=== PATIENT | male | born 1980 | race African-American/Black ===

== ENCOUNTER 2017-07-15 10:08 | Emergency (ER) | payer MEDICARE, MEDICAID ==
[~2017-07-15] VITALS: Ht 182.9 cm; Wt 77.1 kg
[~2017-07-15 10:08] MED LIST: IBUPROFEN600 MG ORAL; NKM
[2017-07-15] MEDS ORDERED: Tetanus/Diptheria/Pertussis Vaccine 0.5ml Syr IM ONE (10:45)
[2017-07-15] MEDS ORDERED: Bacitracin Oint UD TOPIC ONE (10:45)
--- NOTE | 2017-07-15 10:52 | Emergency Room Report ---
History of Present Illness General Chief Complaint: Animal Bite Source: Patient Present Illness HPI The patient was bitten by his friend's dog. He has bites on the left and right leg. No sig bleeding.. No numbness. Pain reported at 11/29. The patient is a dialysis patient and he has hypertension. His dialysis 3 times a week. Soon to be on list for kidney. He's not sure when his last tetanus shot was. No CP, palps, fever, dyspnea, joint pain. Allergies: Coded Allergies: No Known Allergies (Unverified , 11/29/15) Patient History Past Medical History: see triage record Social History: Denies: smoking Reviewed Nursing Documentation: PMH: Agreed, PSxH: Agreed Nursing Documentation-PMH Hx Hypertension: Yes Hx Dialysis: Yes - M, W, F Review of Systems All Other Systems: negative except mentioned in HPI Physical Exam Vital Signs Date Time Temp Pulse Resp B/P (MAP) Pulse Ox O2 Delivery O2 Flow Rate FiO2 07/15/17 10:12 98.1 101 20 153/101 99 Room Air Sp02 EP Interpretation: reviewed, normal General Appearance: well appearing, no apparent distress, GCS 15 Head: normocephalic, atraumatic Eyes: bilateral eye normal inspection, bilateral eye PERRL ENT: hearing grossly normal, normal voice, moist mucus membranes Neck: full range of motion, supple Respiratory: no respiratory distress, speaking full sentences Cardiovascular #1: regular rate, rhythm, other - cap fill normal. shunt not examined Gastrointestinal: normal inspection Musculoskeletal: gait/station normal, normal range of motion, no calf tenderness Neurologic: alert, motor strength/tone normal, sensory intact, normal gait, grossly normal Psychiatric: mood/affect normal Skin: other - multiple abrasions, few PWs, no lacerations LE bilat Medical Decision Making Diagnostic Impression: Primary Impression: Dog bite Qualified Codes: W54.0XXA - Bitten by dog, initial encounter Additional Impression: Dialysis patient ER Course Patient presents with multiple dog bites LE bilateral. No suturable lesions. Needs tetanus and antibiotics. Need to adjust dose due to renal failure. Wounds cleaned and dressed. Augmentin begun. Declines pain medicine. Patient stable for outpatient observation and treatment. Last Vital Signs Date Time Temp Pulse Resp B/P (MAP) Pulse Ox O2 Delivery O2 Flow Rate FiO2 07/15/17 11:29 98.1 69 20 150/92 99 Room Air Status: improved Disposition: HOME, SELF-CARE Condition: Improved Scripts Bacitracin (Bacitracin) 28.4 Gm Oint...g. 1 APPLIC TOPIC BID, #10 GM Prov: Chuy Fermin M.D. 07/15/17 Acetaminophen (Tylenol) 325 Mg Tablet 650 MG ORAL Q6H Y for Prn Pain/Headache/Temp > 101, #20 TAB 0 Refills Prov: Chuy Fermin M.D. 07/15/17 Amoxicillin/Potassium Clav 500-125 Tablet* (AUGMENTIN 500-125 TABLET*) 1 Each Tablet 1 TAB ORAL DAILY for 7 Days, TAB take the dose after dialysis Prov: Chuy Fermin M.D. 07/15/17 Chuy Fermin M.D. Jul 15, 2017 10:52
[2017-07-15] MEDS ORDERED: TYLENOL325 MG ORAL (10:55)
[2017-07-15] MEDS ORDERED: AUGMENTIN 500-1 EACH ORAL (10:55)
[2017-07-15] MEDS ORDERED: BACITRACIN15 GM TOPIC (10:55)
[2017-07-15 11:21] VITALS: BP 150/92
== END 2017-07-15 11:32 | disposition home or self-care (01) ==
LOC: EMR 11:10
DX: S81.852A Open bite, left lower leg, initial encounter (principal); S81.851A Open bite, right lower leg, initial encounter; W54.0XXA Bitten by dog, initial encounter; Y93.9 Activity, unspecified; Y92.9 Unspecified place or not applicable; Z99.2 Dependence on renal dialysis; I10 Essential (primary) hypertension; Z23 Encounter for immunization
CPT/HCPCS: 90471; 90715; 99284

== ENCOUNTER 2017-07-25 13:19 | Inpatient (IN) | payer OTHER, MEDICAID, MEDICARE ==
[~2017-07-25] VITALS: Ht 182.9 cm; Wt 84.5 kg
[2017-07-25] MEDS: Zosyn 2.25 gm in D5W 55ml IV SCH (00:30)
[~2017-07-25 13:19] MED LIST changes: +AUGMENTIN 500-1 EACH ORAL; +BACITRACIN15 GM TOPIC; +TYLENOL325 MG ORAL
[2017-07-25 13:48] VITALS: BP 110/75
[2017-07-25] MEDS ORDERED: Piperacillin/Tazobactam 3.375 GM in NS 110 ML IVPB ONE (14:15)
--- NOTE | 2017-07-25 14:20 | Emergency Room Report ---
History of Present Illness General Chief Complaint: Skin Rash/Abscess Source: Patient Present Illness HPI The patient is a 37-year-old male with a history of renal failure on dialysis Friday presenting for possible skin infection. He was seen in this emergency department on 07/15/17 after a dog bite and was placed on Augmentin and Bactrim which he states he has completed. He states that he was at his dialysis center today and the wound was checked by staff and she was told it was infected. He states he also had a fever today and he has been feeling more short of breath than usual after the treatment. Pain is 8/10 dull ache and does not radiate from the left hip where the bite is. He does admit to subjective fever and chills. He denies any other symptoms including nausea, vomiting, chest pain, back pain, numbness or tingling, dizziness Allergies: Coded Allergies: No Known Allergies (Unverified , 11/29/15) Patient History Past Medical History: see triage record, HTN, renal disease - renal failure Pertinent Family History: none Reviewed Nursing Documentation: PMH: Agreed, PSxH: Agreed Nursing Documentation-PMH Past Medical History: No History, Except For Hx Hypertension: Yes Hx Dialysis: Yes - shunt on rt chest Review of Systems All Other Systems: negative except mentioned in HPI Physical Exam Vital Signs Date Time Temp Pulse Resp B/P (MAP) Pulse Ox O2 Delivery O2 Flow Rate FiO2 07/25/17 13:38 100.2 99 18 105/74 96 Room Air Sp02 EP Interpretation: reviewed, normal General Appearance: no apparent distress, alert, GCS 15, non-toxic Head: normocephalic, atraumatic Eyes: bilateral eye normal inspection, bilateral eye PERRL ENT: hearing grossly normal, normal pharynx, no angioedema, normal voice Neck: full range of motion, supple/symm/no masses Respiratory: chest non-tender, lungs clear, normal breath sounds, speaking full sentences Cardiovascular #1: regular rate, rhythm, no edema Musculoskeletal: normal range of motion, tender - TTP over the L lateral hip Neurologic: alert, oriented x3, responsive, motor strength/tone normal, sensory intact, speech normal Psychiatric: judgement/insight normal, memory normal, mood/affect normal, no suicidal/homicidal ideation Skin: other - There are multiple bite wounds to the left lateral hip with surrounding erythema and induration Lymphatic: no adenopathy Medical Decision Making PA Attestation Dr. Drummond is my supervising physician. Patient management was discussed with my supervising physician Diagnostic Impression: Primary Impression: Abscess or cellulitis of hip ER Course The patient is a 37-year-old male presenting for possible skin infection Differential diagnoses considered but not limited to: abscess, cellulitis, sepsis, among others PE: T 100.2F NAD Left hip reveals multiple bite wounds with surrounding erythema and tenderness. No discharge. No bleeding. Area is hot to touch Labs: leukocytosis. CMP shows ESRD Dr. Drummond has spoken with Dr. Martinez regarding admission. He is given a dose of zosyn, vancomycin, and tylenol for fever. He will be admitted in stable but serious condition. Laboratory Tests Test 07/25/17 14:53 White Blood Count 20.1 K/UL (4.8-10.8) H Red Blood Count 4.10 M/UL (4.70-6.10) L Hemoglobin 11.7 G/DL (14.2-18.0) L Hematocrit 35.3 % (42.0-52.0) L Mean Corpuscular Volume 86 FL (80-99) Mean Corpuscular Hemoglobin 28.5 PG (27.0-31.0) Mean Corpuscular Hemoglobin Concent 33.1 G/DL (32.0-36.0) Red Cell Distribution Width 19.0 % (11.6-14.8) H Platelet Count 180 K/UL (150-450) Mean Platelet Volume 6.5 FL (6.5-10.1) Neutrophils (%) (Auto) % (45.0-75.0) Lymphocytes (%) (Auto) % (20.0-45.0) Monocytes (%) (Auto) % (1.0-10.0) Eosinophils (%) (Auto) % (0.0-3.0) Basophils (%) (Auto) % (0.0-2.0) Differential Total Cells Counted 100 Neutrophils % (Manual) 87 % (45-75) H Lymphocytes % (Manual) 5 % (20-45) L Monocytes % (Manual) 5 % (1-10) Eosinophils % (Manual) 1 % (0-3) Basophils % (Manual) 0 % (0-2) Band Neutrophils 2 % (0-8) Platelet Estimate Adequate Platelet Morphology Normal Polychromasia 1+ Hypochromasia 1+ Anisocytosis 2+ Sodium Level 136 mEQ/L (135-145) Potassium Level 4.8 mEQ/L (3.4-4.9) Chloride Level 94 mEQ/L (98-107) L Carbon Dioxide Level 26 mEQ/L (20-30) Anion Gap 16 (5-15) H Blood Urea Nitrogen 45 mg/dL (7-23) H Creatinine 11.6 mg/dL (0.7-1.2) H Estimate Glomerular Filtration Rate 6.1 mL/min (>60) Glucose Level 92 mg/dL (74-106) Lactic Acid Level 1.40 mmol/L (0.66-2.22) Calcium Level 10.0 mg/dL (8.6-10.2) Total Bilirubin 0.4 mg/dL (0.0-1.2) Aspartate Amino Transferase (AST) 15 U/L (5-40) Alanine Aminotransferase (ALT) 12 U/L (3-41) Alkaline Phosphatase 73 U/L (40-129) Total Creatine Kinase 98 U/L (38-174) Creatine Kinase MB < 1.5 ng/mL (< 6.7) Creatine Kinase MB Relative Index 1.5 Troponin I 0.017 ng/mL (0.000-0.056) Total Protein 8.5 g/dL (6.6-8.7) Albumin 4.6 g/dL (3.5-5.2) Globulin 3.9 g/dL Albumin/Globulin Ratio 1.1 (1.0-2.7) Lab Results Impression CBC: leukocytosis with L shift. CMP: consistent with ESRD Last Vital Signs Date Time Temp Pulse Resp B/P (MAP) Pulse Ox O2 Delivery O2 Flow Rate FiO2 07/25/17 13:38 100.2 99 18 105/74 96 Room Air Status: improved Disposition: ADMITTED INPATIENT Condition: Stable Referrals: NON PHYSICIAN (PCP) MARISA HOWELL Jul 25, 2017 14:20
--- NOTE | 2017-07-25 14:32 | Diagnostic Imaging Report ---
Indication: Dyspnea Comparison: None A single view chest radiograph was obtained. Findings: Cardio sternal silhouette is within normal limits. Lungs are clear with normal vascularity. Costophrenic angles are sharp and clear. Bones are unremarkable. There is a right jugular permacath in good position. The tip is in the right atrium. Impression: Permacath in good position.
[2017-07-25] MEDS ORDERED: Zosyn 3.375gm inj ONE (14:38)
[2017-07-25] MEDS ORDERED: CLONIDINE0.1 MG GT (15:21)
[2017-07-25] MEDS ORDERED: LOSARTAN POTASS25 M1 PO (15:21)
[2017-07-25 15:27] LABS: MEAN CORPUSCULAR HEMOGLOBIN 28.5 PG (27.0-31.0); MEAN CORPUSCULAR HGB CONC 33.1 G/DL (32.0-36.0); MEAN CORPUSCULAR VOLUME 86 FL (80-99); MEAN PLATELET VOLUME 6.5 FL (6.5-10.1); PLATELET COUNT 180 K/UL (150-450); WHITE BLOOD COUNT 20.1 K/UL (4.8-10.8)
[2017-07-25 15:41] LABS: ALANINE AMINOTRANSFERASE 12 U/L (3-41); ALBUMIN/GLOBULIN RATIO 1.1 (1.0-2.7); ANION GAP 16 (5-15); ASPARTATE AMINO TRANSFERASE 15 U/L (5-40); CARBON DIOXIDE 26 mEQ/L (20-30); CHLORIDE 94 mEQ/L (98-107); CREATININE 11.6 mg/dL (0.7-1.2); GLOMERULAR FILTRATION RATE 6.1 mL/min (>60); HEMOLYSIS 5; POTASSIUM 4.8 mEQ/L (3.4-4.9); SODIUM 136 mEQ/L (135-145); TOTAL PROTEIN 8.5 g/dL (6.6-8.7)
[2017-07-25 15:52] LABS: CKMB < 1.5 ng/mL (< 6.7)
[2017-07-25 15:55] LABS: TROPONIN I 0.017 ng/mL (0.000-0.056)
[2017-07-25] MEDS: Vancomycin 1.5gm/D5W 250ml 250 ML IVPB ONE ×2 (16:30→19:00)
[2017-07-25 17:13] LABS: ANISOCYTOSIS 2+; BAND NEUTROPHILS % (MANUAL) 2 % (0-8); BASOPHILS % (MANUAL) 0 % (0-2); EOSINOPHILS % (MANUAL) 1 % (0-3); LYMPHOCYTES % (MANUAL) 5 % (20-45); NEUTROPHILS % (MANUAL) 87 % (45-75); PLATELET ESTIMATE ADEQUATE; TOTAL CELLS COUNTED 100
[2017-07-25 17:14] LABS: HYPOCHROMASIA 1+; PLATELET MORPHOLOGY NORMAL; POLYCHROMASIA 1+
[2017-07-25 18:39] VITALS: BP 130/71
[2017-07-25 20:00] VITALS: BP 135/72
--- NOTE | 2017-07-25 22:13 | Nephrology Progress Note ---
Assessment/Plan Problem List: (1) Dog bite (2) Dialysis patient (3) Abscess or cellulitis of hip Plan H&P dictated # [id number] Subjective Constitutional: Denies: no symptoms, chills, diaphoresis, fever, malaise, weakness, other HEENT: Denies: no symptoms, eye pain, blurred vision, tearing, double vision, ear pain, ear discharge, nose pain, nose congestion, throat pain, throat swelling, mouth pain, mouth swelling, other Genitourinary: Denies: no symptoms, burning, discharge, frequency, flank pain, hematuria, incontinence, pain, urgency, other Neurologic/Psychiatric: Denies: no symptoms, anxiety, depressed, emotional problems, headache, numbness, paresthesia, pre-existing deficit, seizure, tingling, tremors, weakness, other Subjective in bed, in no apparent distress Objective Objective Last 24 Hour Vital Signs Date Time Temp Pulse Resp B/P (MAP) Pulse Ox O2 Delivery O2 Flow Rate FiO2 07/25/17 20:00 99.5 83 18 135/72 99 Room Air 07/25/17 18:39 97.9 77 16 130/71 97 Room Air 07/25/17 13:48 100.2 78 20 110/75 100 Room Air 07/25/17 13:38 100.2 99 18 105/74 96 Room Air Laboratory Tests 07/25/17 14:53: White Blood Count 20.1H, Red Blood Count 4.10L, Hemoglobin 11.7L, Hematocrit 35.3L, Mean Corpuscular Volume 86, Mean Corpuscular Hemoglobin 28.5, Mean Corpuscular Hemoglobin Concent 33.1, Red Cell Distribution Width 19.0H, Platelet Count 180, Mean Platelet Volume 6.5, Neutrophils (%) (Auto) , Lymphocytes (%) (Auto) , Monocytes (%) (Auto) , Eosinophils (%) (Auto) , Basophils (%) (Auto) , Differential Total Cells Counted 100, Neutrophils % ( Manual) 87H, Lymphocytes % (Manual) 5L, Monocytes % (Manual) 5, Eosinophils % ( Manual) 1, Basophils % (Manual) 0, Band Neutrophils 2, Platelet Estimate Adequate, Platelet Morphology Normal, Polychromasia 1+, Hypochromasia 1+, Anisocytosis 2+, Sodium Level 136, Potassium Level 4.8, Chloride Level 94L, Carbon Dioxide Level 26, Anion Gap 16H, Blood Urea Nitrogen 45H, Creatinine 11.6H, Estimat Glomerular Filtration Rate 6.1, Glucose Level 92, Lactic Acid Level 1.40, Calcium Level 10.0, Total Bilirubin 0.4, Aspartate Amino Transf (AST /SGOT) 15, Alanine Aminotransferase (ALT/SGPT) 12, Alkaline Phosphatase 73, Total Creatine Kinase 98, Creatine Kinase MB < 1.5, Creatine Kinase MB Relative Index 1.5, Troponin I 0.017, Total Protein 8.5, Albumin 4.6, Globulin 3.9, Albumin/Globulin Ratio 1.1 Height (Feet): 6 Height (Inches): 0.00 Weight (Pounds): 170 General Appearance: no apparent distress, alert EENT: PERRL/EOMI, normal ENT inspection Neck: non-tender, normal alignment, supple, normal inspection Cardiovascular: normal rate, regular rhythm Respiratory/Chest: lungs clear, normal breath sounds Abdomen: soft, no organomegaly, no mass Extremities: non-tender, normal inspection, no calf tenderness Neurologic: alert, oriented x 3, responsive, normal mood/affect Diandra Crenshaw N.P. Jul 25, 2017 22:13
[2017-07-25] MEDS ORDERED: Norco 5mg/325mg tab ORAL PRN (22:15)
--- NOTE | 2017-07-25 22:30 | Infectious Diseases Prog Note ---
Assessment/Plan Problems: (1) Dog bite Assessment & Plan: will start zosyn and vancomycin empirically for soft tissue infection, and send blood culture to rule out bacteremia, continue local wound care . he recieved tetnus vaccine last visit here in the ER. no need for rabies vaccine since the dog is domestic and vaccinated. (2) Dialysis patient Assessment & Plan: continue HD as per renal. (3) Thigh abscess Assessment & Plan: with auto drain , continue wide spectrum antibiotics, pending wound culture result, continue local wound care Subjective Allergies: Coded Allergies: No Known Allergies (Unverified , 11/29/15) Objective Vital Signs Last 24 Hour Vital Signs Date Time Temp Pulse Resp B/P (MAP) Pulse Ox O2 Delivery O2 Flow Rate FiO2 07/25/17 20:00 99.5 83 18 135/72 99 Room Air 07/25/17 18:39 97.9 77 16 130/71 97 Room Air 07/25/17 13:48 100.2 78 20 110/75 100 Room Air 07/25/17 13:38 100.2 99 18 105/74 96 Room Air Height (Feet): 6 Height (Inches): 0.00 Weight (Pounds): 170 Laboratory Tests Test 07/25/17 14:53 White Blood Count 20.1 K/UL (4.8-10.8) H Red Blood Count 4.10 M/UL (4.70-6.10) L Hemoglobin 11.7 G/DL (14.2-18.0) L Hematocrit 35.3 % (42.0-52.0) L Mean Corpuscular Volume 86 FL (80-99) Mean Corpuscular Hemoglobin 28.5 PG (27.0-31.0) Mean Corpuscular Hemoglobin Concent 33.1 G/DL (32.0-36.0) Red Cell Distribution Width 19.0 % (11.6-14.8) H Platelet Count 180 K/UL (150-450) Mean Platelet Volume 6.5 FL (6.5-10.1) Neutrophils (%) (Auto) % (45.0-75.0) Lymphocytes (%) (Auto) % (20.0-45.0) Monocytes (%) (Auto) % (1.0-10.0) Eosinophils (%) (Auto) % (0.0-3.0) Basophils (%) (Auto) % (0.0-2.0) Differential Total Cells Counted 100 Neutrophils % (Manual) 87 % (45-75) H Lymphocytes % (Manual) 5 % (20-45) L Monocytes % (Manual) 5 % (1-10) Eosinophils % (Manual) 1 % (0-3) Basophils % (Manual) 0 % (0-2) Band Neutrophils 2 % (0-8) Platelet Estimate Adequate Platelet Morphology Normal Polychromasia 1+ Hypochromasia 1+ Anisocytosis 2+ Sodium Level 136 mEQ/L (135-145) Potassium Level 4.8 mEQ/L (3.4-4.9) Chloride Level 94 mEQ/L (98-107) L Carbon Dioxide Level 26 mEQ/L (20-30) Anion Gap 16 (5-15) H Blood Urea Nitrogen 45 mg/dL (7-23) H Creatinine 11.6 mg/dL (0.7-1.2) H Estimat Glomerular Filtration Rate 6.1 mL/min (>60) Glucose Level 92 mg/dL (74-106) Lactic Acid Level 1.40 mmol/L (0.66-2.22) Calcium Level 10.0 mg/dL (8.6-10.2) Total Bilirubin 0.4 mg/dL (0.0-1.2) Aspartate Amino Transf (AST/SGOT) 15 U/L (5-40) Alanine Aminotransferase (ALT/SGPT) 12 U/L (3-41) Alkaline Phosphatase 73 U/L (40-129) Total Creatine Kinase 98 U/L (38-174) Creatine Kinase MB < 1.5 ng/mL (< 6.7) Creatine Kinase MB Relative Index 1.5 Troponin I 0.017 ng/mL (0.000-0.056) Total Protein 8.5 g/dL (6.6-8.7) Albumin 4.6 g/dL (3.5-5.2) Globulin 3.9 g/dL Albumin/Globulin Ratio 1.1 (1.0-2.7) Current Medications Medications (Trade) Dose Ordered Sig/Reuben Route PRN Reason Start Time Stop Time Status Last Admin Dose Admin Acetaminophen/ Hydrocodone Bitart ([place] 5/325) 1 tab Q4H PRN ORAL Moderate Pain (Pain Scale 4-6) 07/25/17 22:15 10/13/17 22:14 Jose F Hamm M.D. Jul 25, 2017 22:30
[2017-07-25] MEDS ORDERED: Vancomycin 1gm inj IVPB ONE (23:57)
[2017-07-25] MEDS ORDERED: Zosyn 2.25gm inj ONE (23:58)
[2017-07-26] MEDS ORDERED: Ampicillin/Sulbactam Sod 3 GM in NS 110 ML IVPB SCH ×2
[2017-07-26] MEDS ORDERED: Vancomycin 1gm in D5W 275ml IVPB ONE ×2
[2017-07-26 00:17] VITALS: BP 129/81
[2017-07-26] MEDS: Zosyn 2.25 gm in D5W 55ml IV SCH ×4 (00:30→21:10)
[2017-07-26 04:00] VITALS: BP 126/79
[2017-07-26] MEDS ORDERED: Piperacillin/Tazobactam 2.25 GM in D5W 55 ML IVPB SCH (06:00)
[2017-07-26] MEDS ORDERED: Zosyn 2.25gm inj ONE (06:17)
[2017-07-26 07:28] LABS: MEAN CORPUSCULAR HGB CONC 33.6 G/DL (32.0-36.0); MEAN CORPUSCULAR VOLUME 86 FL (80-99); MEAN PLATELET VOLUME 7.1 FL (6.5-10.1); PLATELET COUNT 195 K/UL (150-450); WHITE BLOOD COUNT 19.8 K/UL (4.8-10.8)
[2017-07-26 07:33] LABS: CALCIUM 9.6 mg/dL (8.6-10.2); CREATININE 13.8 mg/dL (0.7-1.2); POTASSIUM 5.2 mEQ/L (3.4-4.9)
[2017-07-26 08:17] VITALS: BP 134/72
[2017-07-26] MEDS ORDERED: Morphine Sulfate 2mg/ml Inj IVP PRN (09:45)
[2017-07-26] MEDS ORDERED: Norco 10mg/325mg tab ORAL PRN (09:45)
[2017-07-26 10:18] LABS: ANISOCYTOSIS 1+; BAND NEUTROPHILS % (MANUAL) 0 % (0-8); BASOPHILS % (MANUAL) 0 % (0-2); EOSINOPHILS % (MANUAL) 2 % (0-3); LYMPHOCYTES % (MANUAL) 4 % (20-45); NEUTROPHILS % (MANUAL) 86 % (45-75); PLATELET ESTIMATE ADEQUATE; PLATELET MORPHOLOGY NORMAL; TOTAL CELLS COUNTED 100
[2017-07-26] MEDS: Heparin 5000 units/ml inj SUBQ SCH ×2 (10:48→21:13)
[2017-07-26 12:24] VITALS: BP 136/75
--- NOTE | 2017-07-26 14:57 | Infectious Diseases Prog Note ---
Assessment/Plan Problems: (1) Dog bite Assessment & Plan: continue zosyn and vancomycin empirically for soft tissue infection, await blood culture to rule out bacteremia, continue local wound care . he received tetanus vaccine last visit here in the ER. no need for rabies vaccine since the dog is domestic and vaccinated. (2) Dialysis patient Assessment & Plan: continue HD as per renal. (3) Thigh abscess Assessment & Plan: with auto drain , continue wide spectrum antibiotics, pending wound culture result, continue local wound care Subjective Constitutional: Reports: no symptoms HEENT: Reports: no symptoms Respiratory: Reports: no symptoms Breasts: Reports: no symptoms Cardiovascular: Reports: no symptoms Gastrointestinal/Abdominal: Reports: no symptoms Genitourinary: Reports: no symptoms Neurologic: Reports: no symptoms Psychiatric: Reports: no symptoms Skin: Reports: ulcer, other - wound Endocrine: Reports: no symptoms Hematologic: Reports: no symptoms Musculoskeletal: Reports: swelling Allergies: Coded Allergies: No Known Allergies (Unverified , 11/29/15) Objective Vital Signs Last 24 Hour Vital Signs Date Time Temp Pulse Resp B/P (MAP) Pulse Ox O2 Delivery O2 Flow Rate FiO2 07/26/17 12:24 98.0 80 20 136/75 97 Room Air 07/26/17 08:17 98.1 78 20 134/72 99 Room Air 07/26/17 04:00 98.9 89 18 126/79 96 Room Air 07/26/17 00:17 98.8 95 18 129/81 95 Room Air 07/25/17 20:00 99.5 83 18 135/72 99 Room Air 07/25/17 18:39 97.9 77 16 130/71 97 Room Air Height (Feet): 6 Height (Inches): 0.00 Weight (Pounds): 170 General Appearance: WD/WN, no acute distress HEENT: normocephalic, atraumatic, anicteric, mucous membranes moist, EOMI, pharynx normal, supple, no JVD Respiratory/Chest: chest wall non-tender, lungs clear, normal breath sounds, no respiratory distress, no accessory muscle use Cardiovascular: normal peripheral pulses, normal rate, regular rhythm, no gallop/murmur, no JVD Abdomen: normal bowel sounds, soft, non tender, no organomegaly, non distended , no mass, no scars Extremities: no cyanosis, no clubbing Skin: no rash, no lesions, ulcers Neurologic/Psychiatric: alert, oriented x 3 Lymphatic: no neck adenopathy, no groin adenopathy Musculoskeletal: normal muscle bulk, no effusion Laboratory Tests Test 07/26/17 05:10 White Blood Count 19.8 K/UL (4.8-10.8) H Red Blood Count 4.20 M/UL (4.70-6.10) L Hemoglobin 12.2 G/DL (14.2-18.0) L Hematocrit 36.3 % (42.0-52.0) L Mean Corpuscular Volume 86 FL (80-99) Mean Corpuscular Hemoglobin 29.0 PG (27.0-31.0) Mean Corpuscular Hemoglobin Concent 33.6 G/DL (32.0-36.0) Red Cell Distribution Width 19.0 % (11.6-14.8) H Platelet Count 195 K/UL (150-450) Mean Platelet Volume 7.1 FL (6.5-10.1) Neutrophils (%) (Auto) % (45.0-75.0) Lymphocytes (%) (Auto) % (20.0-45.0) Monocytes (%) (Auto) % (1.0-10.0) Eosinophils (%) (Auto) % (0.0-3.0) Basophils (%) (Auto) % (0.0-2.0) Differential Total Cells Counted 100 Neutrophils % (Manual) 86 % (45-75) H Lymphocytes % (Manual) 4 % (20-45) L Monocytes % (Manual) 8 % (1-10) Eosinophils % (Manual) 2 % (0-3) Basophils % (Manual) 0 % (0-2) Band Neutrophils 0 % (0-8) Platelet Estimate Adequate Platelet Morphology Normal Anisocytosis 1+ Sodium Level 140 mEQ/L (135-145) Potassium Level 5.2 mEQ/L (3.4-4.9) H Chloride Level 94 mEQ/L (98-107) L Carbon Dioxide Level 24 mEQ/L (20-30) Anion Gap 22 (5-15) H Blood Urea Nitrogen 63 mg/dL (7-23) H Creatinine 13.8 mg/dL (0.7-1.2) H Estimat Glomerular Filtration Rate 5.0 mL/min (>60) Glucose Level 92 mg/dL (74-106) Calcium Level 9.6 mg/dL (8.6-10.2) Random Vancomycin Level 31.4 ug/mL Current Medications Medications (Trade) Dose Ordered Sig/Reuben Route PRN Reason Start Time Stop Time Status Last Admin Dose Admin Acetaminophen/ Hydrocodone Bitart ([place] 10325) 1 ea Q4H PRN ORAL Moderate Pain (Pain Scale 4-6) 07/26/17 09:45 08/02/17 09:44 Heparin Sodium (Porcine) (Heparin 5000 units/ml) 5,000 units EVERY 12 HOURS SUBQ 07/26/17 10:00 08/25/17 09:59 07/26/17 10:48 Morphine Sulfate (Morphine Sulfate) 2 mg Q4H PRN IVP Severe Pain (Pain Scale 7-10) 07/26/17 09:45 08/02/17 09:44 Piperacillin Sod/ Tazobactam Sod 2.25 gm/Dextrose 55 ml @ 110 mls/hr Q8HR IV 07/25/17 23:30 07/30/17 23:29 07/26/17 06:36 Vancomycin HCl (Vanco rx to dose) 1 ea DAILY PRN MISC Per rx protocol 07/25/17 22:30 08/24/17 22:29 07/26/17 00:07 Jose F Hamm M.D. Jul 26, 2017 14:57
[2017-07-26 16:17] VITALS: BP 168/89
[2017-07-26] MEDS ORDERED: Tubing IV Secondary IV ONE (16:17)
[2017-07-26] MEDS ORDERED: NS 275ml ONE (16:17)
[2017-07-26] MEDS: Losartan 50mg tab ORAL SCH ×2 (16:40→21:10)
--- NOTE | 2017-07-26 17:53 | Nephrology Progress Note ---
Assessment/Plan Problem List: (1) Dog bite (2) Dialysis patient (3) Abscess or cellulitis of hip (4) Sepsis Plan Continue HD per schedule Monitor lytes, correct prn Continue abx per ID Pain management prn AM labs Subjective Constitutional: Denies: no symptoms, chills, diaphoresis, fever, malaise, weakness, other HEENT: Denies: no symptoms, eye pain, blurred vision, tearing, double vision, ear pain, ear discharge, nose pain, nose congestion, throat pain, throat swelling, mouth pain, mouth swelling, other Genitourinary: Denies: no symptoms, burning, discharge, frequency, flank pain, hematuria, incontinence, pain, urgency, other Neurologic/Psychiatric: Denies: no symptoms, anxiety, depressed, emotional problems, headache, numbness, paresthesia, pre-existing deficit, seizure, tingling, tremors, weakness, other Subjective in bed, in no apparent distress Objective Objective Last 24 Hour Vital Signs Date Time Temp Pulse Resp B/P (MAP) Pulse Ox O2 Delivery O2 Flow Rate FiO2 07/26/17 16:40 168/89 07/26/17 16:17 97.6 80 19 168/89 99 Room Air 07/26/17 12:24 98.0 80 20 136/75 97 Room Air 07/26/17 08:17 98.1 78 20 134/72 99 Room Air 07/26/17 04:00 98.9 89 18 126/79 96 Room Air 07/26/17 00:17 98.8 95 18 129/81 95 Room Air 07/25/17 20:00 99.5 83 18 135/72 99 Room Air 07/25/17 18:39 97.9 77 16 130/71 97 Room Air Intake and Output 07/26/17 07/27/17 19:00 07:00 Intake Total 350 ml Balance 350 ml Intake Oral 240 ml IV Total 110 ml Laboratory Tests 07/26/17 05:10: White Blood Count 19.8H, Red Blood Count 4.20L, Hemoglobin 12.2L, Hematocrit 36.3L, Mean Corpuscular Volume 86, Mean Corpuscular Hemoglobin 29.0, Mean Corpuscular Hemoglobin Concent 33.6, Red Cell Distribution Width 19.0H, Platelet Count 195, Mean Platelet Volume 7.1, Neutrophils (%) (Auto) , Lymphocytes (%) (Auto) , Monocytes (%) (Auto) , Eosinophils (%) (Auto) , Basophils (%) (Auto) , Differential Total Cells Counted 100, Neutrophils % ( Manual) 86H, Lymphocytes % (Manual) 4L, Monocytes % (Manual) 8, Eosinophils % ( Manual) 2, Basophils % (Manual) 0, Band Neutrophils 0, Platelet Estimate Adequate, Platelet Morphology Normal, Anisocytosis 1+, Sodium Level 140, Potassium Level 5.2H, Chloride Level 94L, Carbon Dioxide Level 24, Anion Gap 22H , Blood Urea Nitrogen 63H, Creatinine 13.8H, Estimat Glomerular Filtration Rate 5.0, Glucose Level 92, Calcium Level 9.6, Random Vancomycin Level 31.4 Height (Feet): 6 Height (Inches): 0.00 Weight (Pounds): 170 General Appearance: no apparent distress, alert EENT: normal ENT inspection Neck: normal alignment Cardiovascular: normal rate, regular rhythm, no JVD Respiratory/Chest: lungs clear, normal breath sounds, no respiratory distress Abdomen: normal bowel sounds, non tender, soft, no organomegaly Extremities: non-tender, normal inspection Neurologic: alert, oriented x 3, responsive, normal mood/affect Diandra Crenshaw N.P. Jul 26, 2017 17:53
[2017-07-26 20:00] VITALS: BP 138/89
--- NOTE | 2017-07-26 20:45 | Consultation ---
DATE OF CONSULTATION: INFECTIOUS DISEASE CONSULTATION CONSULTING PHYSICIAN: Jose F Hamm M.D. REQUESTING PHYSICIAN: Gerardo Martinez M.D. Reason For Consultation: Left thigh wound infection due to dog bite and possible abscess of the left thigh, recommendation for antibiotics therapy History Of Present Illness: The patient is a 37-year-old male with past medical history of end-stage renal disease on hemodialysis presented to the emergency room for the second visit for left leg wound infection, pain, and generalized weakness with fever and chills. The patient was seen originally on 07/15/2017 when he had dog bite in the left thigh, which was unprovoked by his friend's dog at home. The patient was seen in the emergency room and his wound was cleansed. He received tetanus shot, was given Augmentin to go home with some pain medication. The patient took Augmentin only for three days due to insurance issue and he stopped taking it. So Friday morning, he started having fever, chills, generalized body ache, weakness, and significant drainage from his left thigh dog bite wound. He was noticed also to have fever at the dialysis center, so he was sent to [facility] emergency room for further evaluation and management. The patient was found to have infected left thigh wound with some drainage coming out. There was question of deep skin abscess also, so he received vancomycin and Zosyn in the emergency room and he was admitted for further evaluation and management and I was consulted by the primary admitting team for antibiotics choice and further management. The patient describes his left thigh pain was 8/10, dull, deep ache. No radiation to the hip. He had fever and chills. No nausea or vomiting. No cough or shortness of breath. No diarrhea. No headache or blurry vision. No neurological deficits. Review Of Systems: A 14-point of system reviewed were all negative apart from the one I mentioned above in my History and Physical. Past Medical History: Significant for end-stage renal disease, hypertension. Past Surgical History: Significant for shunt on his right chest placement. Medications: He received vancomycin and Zosyn in the emergency room. For the rest of his medications, please refer to MAR. ALLERGIES: No known drug allergy. Social History: The patient currently employed. Denied using any drugs, tobacco, or alcohol. FAMILY HISTORY: Not contributory. PHYSICAL EXAMINATION: Vital Signs: Temperature 99.5, pulse 83, respirations 18, blood pressure 135/72, saturation 99% on room air. General: A young male, up in bed, awake, alert, oriented, not in distress. HEENT: Normocephalic, atraumatic. Pupils are reactive to light. Moist oral mucosa. No exudate or thrush. NECK: Supple. No lymphadenopathy. CARDIOVASCULAR: Regular rate and rhythm. No murmur. No gallop. Lungs: Clear bilaterally. No wheezing or rhonchi. Normal breathing effort. Abdomen: Soft, nontender, nondistended. Positive bowel sounds. No hepatosplenomegaly. No ascites. CHEST: Right PermCath for dialysis. Site looks intact and clean. Extremities: He had left lateral thigh two wounds punctured due to dog bite with erythema and cellulitis surrounding them and mild drainage coming out of one of the wounds. Also, has multiple skin scratches on his left lateral leg dry and clean and right leg site. Laboratory Data: Labs showed white count of 20.1, hemoglobin of 11.7, platelet count of 180, neutrophils of 87. BUN of 45, creatinine of 11.6, potassium of 4.8. Imaging: Chest x-ray showed PermCath in good position. No lungs infiltration or effusion. ASSESSMENT AND RECOMMENDATION: 1. Dog bite on the left side with wound infection due to noncompliant with antibiotics. We will start the patient on Zosyn and vancomycin empiric treatment and send blood culture to rule out bacteremia since he is an hemodialysis patient. Continue local wound care and dressing change as needed. The patient received already tetanus vaccine in the emergency room last time and dog is a domestic and vaccinated with no evidence of rabies. 2. Abscess of the left leg with cellulitis. Management the same as above with antibiotics. Continue local wound care. 3. End-stage renal disease, on hemodialysis. Continue dialysis as per Renal service. Thank you for the consult. Infectious Disease will continue to follow. Jose F Hamm M.D. DR: Manuel JOB#: [id number] CC:
[2017-07-27] VITALS: BP 141/72
[2017-07-27 04:26] VITALS: BP 145/95
[2017-07-27] MEDS: Zosyn 2.25 gm in D5W 55ml IV SCH (05:13)
[2017-07-27 07:53] LABS: BASOPHILS % (AUTO) 0.3 % (0.0-2.0); EOSINOPHILS % (AUTO) 3.8 % (0.0-3.0); LYMPHOCYTES % (AUTO) 9.4 % (20.0-45.0); MEAN CORPUSCULAR HEMOGLOBIN 29.3 PG (27.0-31.0); MEAN CORPUSCULAR VOLUME 86 FL (80-99); MEAN PLATELET VOLUME 6.8 FL (6.5-10.1); NEUTROPHILS % (AUTO) 81.6 % (45.0-75.0); PLATELET COUNT 181 K/UL (150-450); RED BLOOD COUNT 3.84 M/UL (4.70-6.10); RED CELL DISTRIBUTION WIDTH 18.9 % (11.6-14.8); WHITE BLOOD COUNT 10.6 K/UL (4.8-10.8)
[2017-07-27 08:00] VITALS: BP 170/109
[2017-07-27 08:09] LABS: CALCIUM 9.7 mg/dL (8.6-10.2); GLOMERULAR FILTRATION RATE 4.1 mL/min (>60); POTASSIUM 5.3 mEQ/L (3.4-4.9)
[2017-07-27] MEDS: Heparin 5000 units/ml inj SUBQ SCH (09:18)
[2017-07-27 09:19] VITALS: BP 145/95
[2017-07-27] MEDS: Losartan 50mg tab ORAL SCH (09:19)
--- NOTE | 2017-07-27 13:50 | Nephrology Progress Note ---
Assessment/Plan Problem List: (1) Dog bite (2) Dialysis patient (3) Abscess or cellulitis of hip (4) Sepsis Plan Continue HD per schedule Monitor lytes, correct prn Continue abx per ID Pain management prn AM labs Subjective Constitutional: Denies: no symptoms, chills, diaphoresis, fever, malaise, weakness, other HEENT: Denies: no symptoms, eye pain, blurred vision, tearing, double vision, ear pain, ear discharge, nose pain, nose congestion, throat pain, throat swelling, mouth pain, mouth swelling, other Neurologic/Psychiatric: Denies: no symptoms, anxiety, depressed, emotional problems, headache, numbness, paresthesia, pre-existing deficit, seizure, tingling, tremors, weakness, other Subjective in bed, in no apparent distress Objective Objective Last 24 Hour Vital Signs Date Time Temp Pulse Resp B/P (MAP) Pulse Ox O2 Delivery O2 Flow Rate FiO2 07/27/17 09:19 145/95 07/27/17 08:00 97.7 64 16 170/109 99 Room Air 07/27/17 04:26 97.9 78 20 145/95 98 Room Air 07/27/17 00:00 98.1 76 22 141/72 99 Room Air 07/26/17 21:10 138/89 07/26/17 20:00 98.1 87 20 138/89 97 Room Air 07/26/17 16:40 168/89 07/26/17 16:17 97.6 80 19 168/89 99 Room Air Laboratory Tests 07/27/17 05:25: White Blood Count 10.6, Red Blood Count 3.84L, Hemoglobin 11.2L, Hematocrit 33.1L, Mean Corpuscular Volume 86, Mean Corpuscular Hemoglobin 29.3, Mean Corpuscular Hemoglobin Concent 34.0, Red Cell Distribution Width 18.9H, Platelet Count 181, Mean Platelet Volume 6.8, Neutrophils (%) (Auto) 81.6H, Lymphocytes (%) (Auto) 9.4L, Monocytes (%) (Auto) 5.0, Eosinophils (%) (Auto) 3.8H, Basophils (%) (Auto) 0.3, Sodium Level 141, Potassium Level 5.3H, Chloride Level 94L, Carbon Dioxide Level 24, Anion Gap 23H, Blood Urea Nitrogen 68H, Creatinine 16.0H, Estimat Glomerular Filtration Rate 4.1, Glucose Level 95 , Calcium Level 9.7 Height (Feet): 6 Height (Inches): 0.00 Weight (Pounds): 186 General Appearance: no apparent distress EENT: normal ENT inspection Neck: normal alignment Cardiovascular: normal rate, regular rhythm, no JVD Respiratory/Chest: lungs clear, normal breath sounds, no respiratory distress Abdomen: non tender, soft, no organomegaly, no mass Extremities: non-tender, normal inspection, other - left thigh wound Neurologic: alert, oriented x 3, responsive, normal mood/affect Diandra Crenshaw N.P. Jul 27, 2017 13:50
--- NOTE | 2017-07-27 13:52 | Infectious Diseases Prog Note ---
Assessment/Plan Problems: (1) Dog bite Assessment & Plan: continue zosyn and vancomycin empirically for soft tissue infection, await blood culture to rule out bacteremia, continue local wound care . he received tetanus vaccine last visit here in the ER. no need for rabies vaccine since the dog is domestic and vaccinated. (2) Dialysis patient Assessment & Plan: continue HD as per renal. (3) Thigh abscess Assessment & Plan: with auto drain , continue wide spectrum antibiotics, pending wound culture result, continue local wound care Subjective Constitutional: Reports: no symptoms HEENT: Reports: no symptoms Respiratory: Reports: no symptoms Breasts: Reports: no symptoms Cardiovascular: Reports: no symptoms Gastrointestinal/Abdominal: Reports: no symptoms Genitourinary: Reports: no symptoms Neurologic: Reports: no symptoms Psychiatric: Reports: no symptoms Skin: Reports: ulcer Endocrine: Reports: no symptoms Hematologic: Reports: no symptoms Allergies: Coded Allergies: No Known Allergies (Unverified , 11/29/15) Objective Vital Signs Last 24 Hour Vital Signs Date Time Temp Pulse Resp B/P (MAP) Pulse Ox O2 Delivery O2 Flow Rate FiO2 07/27/17 09:19 145/95 07/27/17 08:00 97.7 64 16 170/109 99 Room Air 07/27/17 04:26 97.9 78 20 145/95 98 Room Air 07/27/17 00:00 98.1 76 22 141/72 99 Room Air 07/26/17 21:10 138/89 07/26/17 20:00 98.1 87 20 138/89 97 Room Air 07/26/17 16:40 168/89 07/26/17 16:17 97.6 80 19 168/89 99 Room Air Height (Feet): 6 Height (Inches): 0.00 Weight (Pounds): 186 General Appearance: WD/WN, no acute distress HEENT: normocephalic, atraumatic, anicteric, mucous membranes moist, PERRL Respiratory/Chest: chest wall non-tender, lungs clear, normal breath sounds, no respiratory distress, no accessory muscle use Cardiovascular: normal peripheral pulses, normal rate, regular rhythm, no gallop/murmur, no JVD Abdomen: normal bowel sounds, soft, non tender, no organomegaly, non distended , no mass, no scars Genitourinary: normal external genitalia Extremities: no cyanosis, no clubbing, other - dog scraches and left lateral thigh wound with mild swelling and erythema Skin: no rash, no lesions, ulcers Microbiology Date/Time Source Procedure Growth Status 07/25/17 14:53 Blood Blood Culture - Preliminary NO GROWTH AFTER 24 HOURS Resulted 07/25/17 14:53 Blood Blood Culture - Preliminary NO GROWTH AFTER 24 HOURS Resulted 07/25/17 18:30 Hip Left Gram Stain - Final Resulted 07/25/17 18:30 Hip Left Wound Culture - Preliminary Resulted Laboratory Tests Test 07/27/17 05:25 White Blood Count 10.6 K/UL (4.8-10.8) Red Blood Count 3.84 M/UL (4.70-6.10) L Hemoglobin 11.2 G/DL (14.2-18.0) L Hematocrit 33.1 % (42.0-52.0) L Mean Corpuscular Volume 86 FL (80-99) Mean Corpuscular Hemoglobin 29.3 PG (27.0-31.0) Mean Corpuscular Hemoglobin Concent 34.0 G/DL (32.0-36.0) Red Cell Distribution Width 18.9 % (11.6-14.8) H Platelet Count 181 K/UL (150-450) Mean Platelet Volume 6.8 FL (6.5-10.1) Neutrophils (%) (Auto) 81.6 % (45.0-75.0) H Lymphocytes (%) (Auto) 9.4 % (20.0-45.0) L Monocytes (%) (Auto) 5.0 % (1.0-10.0) Eosinophils (%) (Auto) 3.8 % (0.0-3.0) H Basophils (%) (Auto) 0.3 % (0.0-2.0) Sodium Level 141 mEQ/L (135-145) Potassium Level 5.3 mEQ/L (3.4-4.9) H Chloride Level 94 mEQ/L (98-107) L Carbon Dioxide Level 24 mEQ/L (20-30) Anion Gap 23 (5-15) H Blood Urea Nitrogen 68 mg/dL (7-23) H Creatinine 16.0 mg/dL (0.7-1.2) H Estimat Glomerular Filtration Rate 4.1 mL/min (>60) Glucose Level 95 mg/dL (74-106) Calcium Level 9.7 mg/dL (8.6-10.2) Current Medications Medications (Trade) Dose Ordered Sig/Reuben Route PRN Reason Start Time Stop Time Status Last Admin Dose Admin Acetaminophen/ Hydrocodone Bitart ([place] 10325) 1 ea Q4H PRN ORAL Moderate Pain (Pain Scale 4-6) 07/26/17 09:45 08/02/17 09:44 Heparin Sodium (Porcine) (Heparin 5000 units/ml) 5,000 units EVERY 12 HOURS SUBQ 07/26/17 10:00 08/25/17 09:59 07/27/17 09:18 Losartan Potassium (Cozaar) 50 mg EVERY 12 HOURS ORAL 07/26/17 16:45 08/25/17 16:44 07/27/17 09:19 Morphine Sulfate (Morphine Sulfate) 2 mg Q4H PRN IVP Severe Pain (Pain Scale 7-10) 07/26/17 09:45 08/02/17 09:44 Piperacillin Sod/ Tazobactam Sod 2.25 gm/Dextrose 55 ml @ 110 mls/hr Q8HR IV 07/25/17 23:30 07/30/17 23:29 07/27/17 05:13 Vancomycin HCl (Vanco rx to dose) 1 ea DAILY PRN MISC Per rx protocol 07/25/17 22:30 08/24/17 22:29 07/26/17 00:07 Jose F Hamm M.D. Jul 27, 2017 13:52
--- NOTE | 2017-07-28 09:01 | HX and Phyl Repo 2 Sig ---
DATE OF ADMISSION: 07/25/2017 INTERNAL MEDICINE HISTORY AND PHYSICAL HISTORY OF PRESENT ILLNESS: The patient is a 37-year-old male with a past medical history significant for end-stage renal disease, on hemodialysis every Mondays, Wednesdays, and Friday, who presented to the emergency room with fever and chills. The patient stated that he had a dog bite on 07/15/2017 and presented to the emergency room and was placed on Augmentin and Bactrim. He did also state that he had a tetanus shot at this time, but yesterday he had a fever and then decided to come to the emergency room for evaluation. He stated that he also has pain on his left hip where he was bitten and he rated it as 8/10. He denies chest pain at this time. No nausea. No vomiting. No abdominal pain. Denies any numbness or tingling. PAST MEDICAL HISTORY: Significant for end-stage renal disease, on hemodialysis and also history of hypertension. SOCIAL HISTORY: He lives at home. Denies any smoking. No alcohol use. No illicit drug use. REVIEW OF SYSTEMS: A full 12-point review of system was reviewed with the patient and positives as stated in the HPI. PHYSICAL EXAMINATION: GENERAL: This is a pleasant 37-year-old male, in no apparent distress. VITAL SIGNS: Blood pressure 135/72, heart rate is 83, respiratory rate is 18, temperature is 99.5, and O2 saturation is 99% on room air. HEENT: Head is normocephalic and atraumatic with moist mucous membranes. Pupils are equal, round, and reactive to light and accommodation. NECK: Supple. No JVD noted. LUNGS: Clear to auscultation bilaterally. No wheezing. No crackles. CARDIOVASCULAR: Regular rate and rhythm. No murmurs. No gallops. ABDOMEN: Soft, nontender, and nondistended. Positive bowel sounds in all four quadrants. EXTREMITIES: Right upper thigh cellulitis noted. No edema. No cyanosis. No clubbing. Pedal pulses are palpable. LABORATORY AND DIAGNOSTIC DATA: CBC, white count 20.1, hemoglobin 11.7, hematocrit 35.3, and a platelet count of 187,000. BMP, sodium 136, potassium 4.8, chloride 94, bicarbonate 26, BUN 45, and creatinine 11.6. Radiologic findings, chest x-ray, findings cardio silhouette is within normal limits. Lungs are clear with normal vascularity. Costophrenic angle is sharp and clear. remarkable. There is a right jugular PermCath in good position. The tip is in the right atrium. ASSESSMENT: 1. Leukocytosis. 2. End-stage renal disease, on hemodialysis. 3. Left upper thigh cellulitis, status post dog bite. PLAN: We will obtain an ID consult with Dr. Hamm. We will monitor electrolytes and correct urine. Continue hemodialysis as scheduled. Pain management as needed. Monitor temperature. Continue home medications. We will monitor the patient's overall response to treatment. Gerardo Martinez M.D. Diandra Crenshaw DR: GISELL JOB#: [id number] CC:
--- NOTE | 2017-07-29 10:57 | Discharge Summary ---
Discharge Summary Hospital Course Date of Admission Jul 25, 2017 at 14:32 Date of Discharge Jul 27, 2017 at 12:20 Admitting Diagnosis cellulitis HPI Bairon Torres is a 37 year old male who was admitted on Jul 25, 2017 at 14:32 for Celulitis Hospital Course dc summary #[id number] Discharge Discharge Disposition Patient signed AMA Discharge Diagnoses: Discharge Instructions Discharge Instructions Special Instructions I have been assigned to complete a D/C Summary on this account. I was not involved in the patient management Crys Santoyo NP ([place]te[place]) Jul 29, 2017 10:57
--- NOTE | 2017-07-30 03:15 | Discharge Summary 2 SIG ---
DATE OF ADMISSION: 07/25/2017 DATE OF SIGNING AGAINST MEDICAL ADVISE: 07/27/2017 CONSULTANTS: Jose F Hamm M.D., Infectious Disease specialist. BRIEF HOSPITAL STAY: 37 years old male with end-stage renal disease, on hemodialysis, presented to the emergency room with fever and chills. The patient reported dog bite on 07/15/2017. At that time, he was evaluated in the emergency room and was placed on Augmentin and Bactrim. He also received and had a Tetanus shot at that time. The day prior to presentation, patient developed fever and decided to come to the emergency room for evaluation. He also reported pain in the left hip. No chest pain. No shortness of breath. Workup in the emergency room revealed low-grade fever, leukocytosis WBC- 20.1, BUN - 45, creatinine -11.6, consistent with known history of end-stage renal disease. The patient was given in the emergency room initial dose of Zosyn and vancomycin and Tylenol for fever control. Patient was admitted for further management. Infectious Disease doctor followed the patient. The patient was on empiric antibiotics. Blood culture preliminary negative. Wound culture revealed Strep group G. Local wound care provided. Left leg abscess was auto draining. Pain management was provided. Hemodialysis was arranged. Renal parameters and electrolytes were closely monitored. WBC down to 10.6 on the date of signing against medical advice. The patient decided to sign against medical advice. He has outpatient hemodialysis that he follows. The risks and consequences of signing against medical advice were discussed with the patient. The patient verbalized understanding, however, signed the form and left. FINAL DIAGNOSES: 1. Left upper thigh abscess with cellulitis. 2. Dog bite with wound infection, secondary to noncompliance. 3. End-stage renal disease, on hemodialysis. 4. Leukocytosis, resolved. Gerardo Martinez M.D. I have been assigned to dictate discharge summary on this account and I was not involved in the patient's management. Crys Santoyo ([facility] CenterDiamond SmithPLinda DR: AVINASH JOB#: [id number] CC: JACOB
== END 2017-07-27 12:20 | disposition left against medical advice (07) | DRG 602 ==
LOC: EMR 13:57 → 4E 14:32 → EDBEDREQ 16:28
DX: L03.116 Cellulitis of left lower limb (principal); N18.6 End stage renal disease; L02.416 Cutaneous abscess of left lower limb; Z99.2 Dependence on renal dialysis; S71.152A Open bite, left thigh, initial encounter; W54.0XXA Bitten by dog, initial encounter; Z91.19 Patient's noncompliance with other medical treatment and regimen
CPT/HCPCS: 36415; 71010; 80048; 80053; 80202; 82550; 82553; 83605; 84484; 85007; 85025; 87040; 87070; 87081; 87181; 87205; 99285

== ENCOUNTER 2019-10-07 15:07 | Emergency (ER) | payer MEDICARE, MEDICAID ==
[~2019-10-07] VITALS: Ht 182.9 cm; Wt 79.4 kg
[~2019-10-07 15:07] MED LIST changes: +CLONIDINE0.1 MG GT; +LOSARTAN POTASS25 M1 PO
[2019-10-07 15:14] VITALS: BP 144/88
[2019-10-07] MEDS ORDERED: CLONIDINE0.1 MG PO (15:17)
--- NOTE | 2019-10-07 15:42 | Emergency Room Report ---
History of Present Illness General Chief Complaint: Skin Rash/Abscess Source: Patient Present Illness HPI 39-year-old male presents to the emergency department complaining of itchy diffuse rash that is been progressive over the course of 3 days. Patient reports initial lesions were in the right underarm area. He denies pain or flu like symptoms. Patient reports history of end-stage renal disease and is on dialysis otherwise no other medical problems at this time. Patient denies new medications. Pt. denies fevers, chills or swollen tender lymph nodes. Denies lesions/rashes elsewhere on the body. Denies new medications or body washes or creams. Denies swelling of the lips, tongue , throat or airway. Denies wheezing , or shortness of breath. Denies recent travel, recent illness or ill contacts. denies blisters, oral lesions, or sloughing of the skin. Allergies: Coded Allergies: No Known Allergies (Unverified , 11/29/15) Patient History Past Medical History: see triage record Past Surgical History: none Pertinent Family History: none Immunizations: UTD Reviewed Nursing Documentation: PMH: Agreed; PSxH: Agreed Nursing Documentation-PMH Hx Hypertension: Yes Hx Cancer: No Hx Gastrointestinal Problems: No Hx Dialysis: Yes - M,W,F - LAST HD 07/25/17 (L[facility]) Hx Neurological Problems: No Review of Systems All Other Systems: negative except mentioned in HPI Physical Exam Vital Signs Date Time Temp Pulse Resp B/P (MAP) Pulse Ox O2 Delivery O2 Flow Rate FiO2 10/07/19 15:14 98.4 93 17 144/88 (106) 96 Room Air Sp02 EP Interpretation: reviewed, normal General Appearance: no apparent distress, alert, GCS 15, non-toxic Head: normocephalic, atraumatic Eyes: bilateral eye normal inspection, bilateral eye PERRL ENT: hearing grossly normal, normal pharynx, normal voice, other - no swelling of the lips or tongue Neck: full range of motion, other - no stridor Respiratory: chest non-tender, lungs clear, normal breath sounds, no respiratory distress, no accessory muscle use, no wheezing, speaking full sentences Cardiovascular #1: regular rate, rhythm, no edema, normal capillary refill Musculoskeletal: normal range of motion, gait/station normal, non-tender Neurologic: alert, motor strength/tone normal, oriented x3, sensory intact, responsive, speech normal Psychiatric: judgement/insight normal Skin: rash - duffuse papules and plaques on the torso and the UE & LE's bilaterally. no facial involvement. no blisters or vessicles. Lymphatic: no adenopathy Medical Decision Making PA Attestation Dr. Hamilton is my supervising Physician whom patient management has been discussed with. Diagnostic Impression: Primary Impression: Rash and other nonspecific skin eruption ER Course 39-year-old male presents to the emergency department complaining of itchy diffuse rash that is been progressive over the course of 3 days. Patient reports initial lesions were in the right underarm area. He denies pain or flu like symptoms. Patient reports history of end-stage renal disease and is on dialysis otherwise no other medical problems at this time. Patient denies new medications. Pt. denies fevers, chills or swollen tender lymph nodes. Denies lesions/rashes elsewhere on the body. Denies new medications or body washes or creams. He reports using a fragrant Bath bomb several days ago. Denies swelling of the lips, tongue , throat or airway. Denies wheezing, or shortness of breath. Denies recent travel, recent illness or ill contacts. denies blisters , oral lesions, or sloughing of the skin. Ddx considered but are not limited to cellulitis, scabies, shingles, varicella, dermatitis, urticaria, eczema, tinea, viral exanthem, SJS Vital signs: are WNL, pt. is afebrile H&PE are most consistent with dermatitis. No evidence of acute bleeding airway compromise or anaphylaxis. ORDERS: none required at this time, the diagnosis is clinical ED INTERVENTIONS: None required at this time. DISCHARGE: At this time pt. is stable for d/c to home. Will provide printed patient care instructions, and any necessary prescriptions. Care plan and follow up instructions have been discussed with the patient prior to discharge. Last Vital Signs Date Time Temp Pulse Resp B/P (MAP) Pulse Ox O2 Delivery O2 Flow Rate FiO2 10/07/19 15:14 98.4 93 17 144/88 (106) 96 Room Air Disposition: HOME, SELF-CARE Condition: Stable Patient Instructions: Rash Additional Instructions: Take medications as directed. Follow up with a Primary Care Provider in 3-5 days for DERMATOLOGY REFERRAL , even if your symptoms have resolved. --Please review list of primary care clinics, if you do not already have a primary care provider Return sooner to ED if new symptoms occur, or current symptoms become worse. Do not drink alcohol, drive, or operate heavy machinery while taking Benadryl as this may cause drowsiness. - Please note that this Emergency Department Report was dictated using [employer] worker technology software, occasionally this can lead to erroneous entry secondary to interpretation by the dictation equipment. Jo Ann Frank Oct 07, 2019 15:42
[2019-10-07] MEDS ORDERED: BENADRYL ALLERG25 M1 PO (15:43)
[2019-10-07 15:45] VITALS: BP 144/88
--- NOTE | 2019-10-07 15:50 | NUR ---
ER DISCHARGE NOTE: Patient is cleared to be discharged per ERMD, pt is aox4, on room air, with stable vital signs. pt was given dc and prescription instructions, pt was able to verbalize understanding, pt is able to ambulate with steady gait. pt took all belongings.
== END 2019-10-07 16:00 | disposition home or self-care (01) ==
LOC: EMR 15:45
DX: R21 Rash and other nonspecific skin eruption (principal); I10 Essential (primary) hypertension
CPT/HCPCS: 99282